=== PATIENT | male | born 1930 | race Caucasian/White ===

== ENCOUNTER 2016-07-27 12:18 | Emergency (ER) | payer MEDICARE ==
--- NOTE | ~2016-07-27 | ER ---
PATIENT'S NAME: LOLIS MILLSLAND Rashad [facility] AGE: 86 Y [address] ROOM: [place] [address] LOCATION: [facility] ADMIT DATE: 07/27/2016 ER/Outpatient Report DISCHARGE DATE: 07/27/2016 FAMILY PHYSICIAN: Physician, Unknown ATTENDING PHYSICIAN: Guilherme Conway Time of patient arrival was 1218 hours. Time of patient evaluation was 1300 hours. He was not seen in a timely manner due to busy ER. CHIEF COMPLAINT: Unable to urinate. HISTORY OF PRESENT ILLNESS: This is an 86-year-old male, presents to the ER who states that he has not been able to urinate since last evening. The patient states he had a recent uplift procedure in the [facility] 2 weeks ago. He did call the Urology Clinic and notified them. He states his primary care physician started him on a new medication for urinary retention. He had been on that for [address] Martinez would like him to stop that medication. The patient has not been running any fevers. He denies any vomiting or diarrhea. No recent illnesses. He states his abdomen is slightly tender due to not being able to urinate. ALLERGIES: SULFA. MEDICATIONS: Please see medication list, nurse's notes. PAST MEDICAL HISTORY: 1. The patient is a oee-hixytke-cmdsmvzch diabetic. 2. Heart disease. 3. Acid reflux. 4. Urinary retention. 5. He has a recent prostate surgery. SOCIAL HISTORY: Denies smoking, drug, or alcohol use. REVIEW OF SYSTEMS: A 10-point review of system was completed and was negative with the exception of those discussed in the HPI. PHYSICAL EXAMINATION: VITAL SIGNS: Weight 76.6 kg taken, blood pressure is 156/66, pulse 70, respirations 20, temperature 96.9 degrees tympanically, and saturations 99% on PATIENT'S NAME: LOLIS MILLSLAND Rashad [facility] AGE: 86 Y [address] ROOM: [place] [address] LOCATION: [facility] ADMIT DATE: 07/27/2016 ER/Outpatient Report DISCHARGE DATE: 07/27/2016 FAMILY PHYSICIAN: Physician, Unknown ATTENDING PHYSICIAN: Guilherme Conway room air. [place] Coma score is 15. GENERAL: Alert, calm, well-developed, 86-year-old, in mild distress. HEENT: Head: Normocephalic. Eyes: Pupils are equal and reactive to light. Does display moist mucous membranes. LUNGS: Clear to auscultation bilaterally. No wheeze or crackles or rales. HEART: Regular rate and rhythm. ABDOMEN: Soft. He has mild tenderness in suprapubic area with palpation, he has good bowel sounds throughout. No masses were palpated. EXTREMITIES: No clubbing, cyanosis, or edema. Has full range of motion of all limbs. LABORATORY DATA: Urinalysis: Leukocytes 500, nitrites negative, and protein 100. UA micro: White blood cells full field, red blood cells 2 to 5, epithelial 0 to 2, white blood cell clumps moderate. IMPRESSION: 1. Urinary retention. 2. Urinary tract infection. ASSESSMENT AND PLAN: We did do a bladder scan. He had approximately 350 mL in his bladder. We did place a catheter in with a leg bag and did drain his bladder and he had instant relief. I discussed the patient's care with Dr. Conway. We will send his urine off for culture and we will start him on Cipro to use as directed. Dr. Martinez would like him to be seen on in the clinic. The patient should return if he has any worsening symptoms. He understands and agrees with care. JAMESON OLIVER PA-C FOR MD JEFFREY MCCORMICK/nisha /[id number] d: 07/27/[id number] t: 08/05/16 1721, OUTPATIENT REPORT
[~2016-07-27 12:18] MED LIST: AMARYL4 MG PO; ASPIRIN EC81 MG PO; BACTROBAN N1 GM/TUBE TOP; CHROMIUM PIC1000 MCG PO; CINNAMON500 MG PO; COPPER2 MG PO; COREG6.25 MG PO; DEMADEX20 MG PO; ESTER-C 500 MG1 EACH PO; FISH OIL1000 MG PO; GALZIN25 MG PO; GLUCOPHAGE1000 MG PO; MAGNESIUM500 MG PO; MELATONIN10 MG PO; MIRALAX17 GM PO; NORTRIPTYLINE H50 MG PO; ONGLYZA5 MG PO; POTASSIUM99 M1 PO; PRILOSEC20 MG PO; TYLENOL/COD#31 TAB PO; VITAMIN B-121000 MCG PO; VITAMIN D-32000 UNI1 PO
[2016-07-27 13:28] LABS: BILIRUBIN URINE NEGATIVE (NEGATIVE); BLOOD URINE 25 /UL (NEGATIVE); COLOR URINE YELLOW (YELLOW); GLUCOSE URINE NEGATIVE (NEGATIVE); KETONE URINE NEGATIVE (NEGATIVE); LEUKOCYTES URINE 500 /UL (NEGATIVE); NITRITE URINE NEGATIVE (NEGATIVE); PROTEIN URINE 100 mg/dL (NEGATIVE); SPEC GRAVITY URINE 1.015 (1.003-1.035); UROBILINOGEN URINE NORMAL (NORMAL)
[2016-07-27 13:31] LABS: TURBIDITY URINE 1+ (CLEAR)
[2016-07-27 13:36] LABS: WBC URINE FULL FIELD #/HPF (NEGATIVE)
[2016-07-27 13:37] LABS: EPITHELIAL URINE 0-2 #/HPF (NEGATIVE)
[2016-07-27 13:38] LABS: BACTERIA URINE FEW (NEGATIVE); HYALINE CAST URINE 0-2 #/LPF (NEGATIVE); WBC CLUMPS URINE MODERATE (NEGATIVE)
== END 2016-07-27 14:00 | disposition disaster alternative care site (69) ==
LOC: GMED 12:18
PROVIDERS: Physician Assistant Medical
PROC: 0T9B70Z Drainage of Bladder with Drainage Device, Via Natural or Artificial Opening (ICD-10-PCS; principal; 2016-07-27)
DX: N39.0 Urinary tract infection, site not specified (principal); E11.9 Type 2 diabetes mellitus without complications; K21.9 Gastro-esophageal reflux disease without esophagitis; Z88.2 Allergy status to sulfonamides